=== PATIENT | male | born 1980 | race Caucasian/White ===

== ENCOUNTER 2017-06-06 20:57 | Emergency (ER) | payer MEDICAID, OTHER ==
[~2017-06-06] VITALS: Ht 188 cm; Wt 81.6 kg
[~2017-06-06 20:57] MED LIST: COZ50 PO; ESK300 PO; LORA-476 PO; OLAN20TA1 PO
--- NOTE | 2017-06-06 20:57 | NUR ---
Patient was BIBA and taken to bed 03 via gurney per EMS.
[2017-06-06 20:59] VITALS: BP 134/92
--- NOTE | 2017-06-06 20:59 | NUR ---
Dr. Yoo evaluating patient at bedside.
--- NOTE | 2017-06-06 21:00 | NUR ---
37Y/M PT [place] TO ED FOR EVALUATION OF ANXIETY. PT STATES HE RAN OUT OF HIS LITHIUM AND ZYPREXA 2 DAYS AGO AND HAS BEEN FEELING VERY ANXIOUS SINCE THAT TIME. PT ALSO STATES HE WAS SEEN AT [facility] LAST NOC FOR SAME S/SX AND WAS GIVEN AN ATIVAN SHOT, WHICH HAS SINCE WORE OFF. HX BIPOLAR DISORDER AND SCHIZOPHRENIA. AAO X4, AMBULATORY WITH STEADY GAIT. RESPIRATIONS ROOM AIR, EVEN AND UNLABORED. NO S/SX OF DISTRESS AT THIS TIME. ER MD MADE AWARE OF PT. STATTUS.
[2017-06-06] MEDS ORDERED: LORazepam 1 MG TAB PO ONE ×3 (21:05→22:20)
[2017-06-06] MEDS ORDERED: OLANZapine 5 MG TAB PO SCH (21:45)
[2017-06-06] MEDS ORDERED: LITHIUM CARBONATE 300 MG TAB PO SCH (21:45)
[2017-06-06 21:57] LABS: AMPHETAMINE, URINE NEG. ng/ml (NEG <=1000); BARBITURATE, URINE NEG. ng/ml (NEG <=200); BENZODIAZEPINE, URINE NEG. ng/mL (NEG <=200); CANNABINOID, URINE NEG. ng/mL (NEG <=50); COCAINE, URINE NEG. ng/mL (NEG <=300); OPIATE, URINE NEG. ng/mL (NEG <=2000); PHENCYCLIDINE SCREEN,URINE NEG. ng/mL (NEG <=25)
[2017-06-06] MEDS ORDERED: LITHIUM CARBONATE 300 MG TAB ONE (22:24)
[2017-06-06] MEDS ORDERED: OLANZapine 5 MG TAB ONE (22:25)
--- NOTE | 2017-06-06 23:05 | NUR ---
Patient discharged with v/s stable. Written and verbal after care instructions given and explained. Patient alert, oriented and verbalized understanding of instructions. Ambulatory with steady gait. All questions addressed prior to discharge. ID band removed. Patient advised to follow up with PMD. Rx of LITHIUM CARBONATE 300 MG, ZYPREXA 20 MG given. Patient educated on indication of medication including possible reaction and side effects. Opportunity to ask questions provided and answered.
[2017-06-06 23:11] VITALS: BP 126/69
== END 2017-06-06 23:05 | disposition home or self-care (01) ==
LOC: MED 20:57
DX: F41.1 Generalized anxiety disorder (principal); F31.9 Bipolar disorder, unspecified; F20.9 Schizophrenia, unspecified; Z76.0 Encounter for issue of repeat prescription; Z88.8 Allergy status to other drugs, medicaments and biological substances; Z88.6 Allergy status to analgesic agent
CPT/HCPCS: 80305; 93005; 99285

== ENCOUNTER 2017-06-18 20:23 | Emergency (ER) | payer MEDICAID ==
[~2017-06-18] VITALS: Ht 188 cm; Wt 81.6 kg
[2017-06-18 20:28] VITALS: BP 133/101
[2017-06-18] MEDS ORDERED: LORazepam 2 MG/ML VIAL IM ONE (20:45)
[2017-06-18 21:41] VITALS: BP 150/91
== END 2017-06-18 21:40 | disposition home or self-care (01) ==
LOC: MED 20:23
DX: F41.0 Panic disorder [episodic paroxysmal anxiety] (principal); R03.0 Elevated blood-pressure reading, without diagnosis of hypertension; F20.9 Schizophrenia, unspecified; Z88.8 Allergy status to other drugs, medicaments and biological substances; Z79.899 Other long term (current) drug therapy
CPT/HCPCS: 96372; 99284; J2060

== ENCOUNTER → 2017-06-19 04:40 | Emergency (ER) | payer SELFPAY ==
--- NOTE | 2017-06-19 04:40 | NUR ---
PATIENT LEFT WITHOUT BEING SEEN BY DR. COMER. NO FURTHER CARE PROVIDED FOR PATIENT.
== END | disposition left against medical advice (07) ==
LOC: MED 04:40
DX: F41.9 Anxiety disorder, unspecified (principal); Z53.21 Procedure and treatment not carried out due to patient leaving prior to being seen by health care provider; Z79.899 Other long term (current) drug therapy

== ENCOUNTER 2017-07-26 23:47 | Emergency (ER) | payer OTHER ==
[~2017-07-26] VITALS: Ht 188 cm; Wt 81.6 kg
--- NOTE | 2017-07-26 23:47 | NUR ---
Matty appiah in [facility] - 07/27/17 at 0015 by GREGORY JAMES SERVIN. TAKEN TO OF
[2017-07-26 23:53] VITALS: BP 151/119
--- NOTE | 2017-07-27 00:15 | NUR ---
PT TAKEN TO OF2
--- NOTE | 2017-07-27 00:27 | NUR ---
Dr. Valadez evaluating patient
[2017-07-27] MEDS ORDERED: LORazepam 1 MG TAB PO ONE (00:30)
[2017-07-27 01:40] VITALS: BP 132/84
--- NOTE | 2017-07-27 01:40 | NUR ---
Patient discharged with v/s stable. Written and verbal after care instructions given and explained. Patient verbalized understanding. Ambulatory with steady gait. All questions addressed prior to discharge. Advised to follow up with PMD.
== END 2017-07-27 01:40 | disposition home or self-care (01) ==
LOC: MED 23:47
DX: F41.9 Anxiety disorder, unspecified (principal); F20.89 Other schizophrenia; F31.9 Bipolar disorder, unspecified; Z88.8 Allergy status to other drugs, medicaments and biological substances; Z79.899 Other long term (current) drug therapy
CPT/HCPCS: 99284

== ENCOUNTER 2017-08-09 19:01 | Emergency (ER) | payer OTHER ==
[~2017-08-09] VITALS: Ht 188 cm; Wt 85.7 kg
[~2017-08-09 19:01] MED LIST changes: +ATIVAN1 MG PO; -COZ50 PO; +COZAAR50 MG PO; +DEPAKOTE ER250 MG PO; -ESK300 PO; +ESKALITH300 M3 PO; +LEVAQUIN500 MG PO; +LITHIUM; -LORA-476 PO; -OLAN20TA1 PO; +ZYPREXA; +ZYPREXA10 MG PO; +ZYPREXA20 MG PO
[2017-08-09 19:06] VITALS: BP 149/110
[2017-08-09] MEDS: NACL 0.9% 1,000 ML IV ONE (19:50)
[2017-08-09] MEDS: LORazepam 2 MG/ML VIAL IVP ONE ×2 (19:57→21:15)
[2017-08-09 21:23] VITALS: BP 154/120
== END 2017-08-09 21:23 | disposition home or self-care (01) ==
LOC: MED 19:01
DX: F41.0 Panic disorder [episodic paroxysmal anxiety] (principal); R03.0 Elevated blood-pressure reading, without diagnosis of hypertension; Z88.8 Allergy status to other drugs, medicaments and biological substances; Z79.899 Other long term (current) drug therapy
CPT/HCPCS: 36415; 71010; 80053; 84484; 85025; 85610; 85730; 93005; 96361; 96374; 96376; 99285; J2060; Q0092

== ENCOUNTER 2017-08-10 14:00 | Emergency (ER) | payer OTHER ==
[~2017-08-10] VITALS: Ht 188 cm; Wt 81.6 kg
[2017-08-10 14:04] VITALS: BP 134/95
[2017-08-10] MEDS: LORazepam 2 MG/ML VIAL IM ONE (14:45)
[2017-08-10 15:40] VITALS: BP 112/75
== END 2017-08-10 15:40 | disposition home or self-care (01) ==
LOC: MED 14:00
DX: F41.9 Anxiety disorder, unspecified (principal); F19.10 Other psychoactive substance abuse, uncomplicated; F20.89 Other schizophrenia; Z79.899 Other long term (current) drug therapy
CPT/HCPCS: 96372; 99284; J2060

== ENCOUNTER 2017-09-03 02:55 | Emergency (ER) | payer OTHER ==
[~2017-09-03] VITALS: Ht 175.3 cm; Wt 78.9 kg
[~2017-09-03 02:55] MED LIST changes: -ATIVAN1 MG PO; +COZ50 PO; -COZAAR50 MG PO; -DEPAKOTE ER250 MG PO; +ESK300 PO; -ESKALITH300 M3 PO; -LEVAQUIN500 MG PO; -LITHIUM; +LORA-476 PO; +OLAN20TA1 PO; -ZYPREXA; -ZYPREXA10 MG PO; -ZYPREXA20 MG PO
[2017-09-03 03:04] VITALS: BP_SYST 147; BP_DIAS 115; BP_DIAS 88
[2017-09-03] MEDS ORDERED: TRAZ-286 PO (03:10)
--- NOTE | 2017-09-03 03:13 | NUR ---
PT TAKEN TO BED 11.
--- NOTE | 2017-09-03 03:17 | NUR ---
BIBA WITH C/O ANXIETY. HX METH ABUSE PT DENIES N/V/D; SKIN IS PINK/WARM/DRY; AAOX4 WITH EVEN AND STEADY GAIT; LUNGS CLEAR BL; HR EVEN AND REGULAR; PT DENIES ANY FEVER, CP, SOB, OR COUGH AT THIS TIME; PATIENT STATES PAIN OF 0/10 AT THIS TIME; VSS; PATIENT POSITIONED FOR COMFORT; HOB ELEVATED; BEDRAILS UP X2; BED DOWN. ER MD MADE AWARE OF PT STATUS.
--- NOTE | 2017-09-03 03:24 | NUR ---
Patient being evaluated by Dr. Ornelas at bedside.
[2017-09-03 03:38] VITALS: BP 147/115
--- NOTE | 2017-09-03 03:39 | NUR ---
Patient discharged with v/s stable. Written and verbal after care instructions given and explained. Patient alert, oriented and verbalized understanding of instructions. Ambulatory with steady gait. All questions addressed prior to discharge. ID band removed. Patient advised to follow up with PMD. Rx of ativan 1mg given. Patient educated on indication of medication including possible reaction and side effects. Opportunity to ask questions provided and answered. Addendum: 09/03/17 at 0532 by [email or web address] Amendment undone in EDM - 09/03/17 at 0536 by [email or web address] PT STATED HE HAD A RESIDENCE IN [place] TO GO TO, PT ASKED IF HE HAD A RIDE PT STATED "ITS HANDLED"
--- NOTE | 2017-09-03 03:39 | NUR ---
PT STATED HE HAD A RESIDENCE IN [place] TO GO TO, PT ASKED IF HE HAD A RIDE PT STATED "ITS HANDLED"
== END 2017-09-03 03:39 | disposition home or self-care (01) ==
LOC: MED 02:55
DX: F41.9 Anxiety disorder, unspecified (principal); Z79.899 Other long term (current) drug therapy; F17.210 Nicotine dependence, cigarettes, uncomplicated
CPT/HCPCS: 99284

== ENCOUNTER 2017-09-10 06:35 | Emergency (ER) | payer OTHER ==
[~2017-09-10] VITALS: Ht 188 cm; Wt 81.6 kg
[~2017-09-10 06:35] MED LIST changes: +TRAZ-286 PO
--- NOTE | 2017-09-10 06:35 | NUR ---
Patient [facility] BLS, triaged by RN and transferred to OF.
--- NOTE | 2017-09-10 06:36 | NUR ---
Dr. Jhaveri evaluating patient at bedside.
[2017-09-10 06:42] VITALS: BP 138/86
[2017-09-10] MEDS ORDERED: LORazepam 2 MG/ML VIAL IM ONE (06:45)
--- NOTE | 2017-09-10 06:45 | NUR ---
Patient transferred to bed 7. RN evaluating patient at bedside.
--- NOTE | 2017-09-10 06:56 | NUR ---
37/M biba with complaints of hearing voices. Pt was seen here earlier today and discharged. Pt reports seeing and hearing voices. Denies suicidal ideation, or homicidal tendencies. AOX4, appears anxious, restless, not combative, cooperative with care. VSS.
--- NOTE | 2017-09-10 07:21 | NUR ---
Pt report given to Surjit CHING. Transfer of care at this time.
--- NOTE | 2017-09-10 07:22 | NUR ---
Pt resting on bed;talking to himself;no acute distress noted;will continue to monitor pt.
--- NOTE | 2017-09-10 07:24 | NUR ---
ASKED PT WHAT DOES THE VOICES TELL HIM;PT STATES "THIS"PT BITING HIS FINGERNAILS;ASKED PT IF HE HAS THE INTENTION TO HURT HIMSELF OR OTHER PEOPLE PT STATES "NO";WILL CONTINUE TO MONITOR PT.
--- NOTE | 2017-09-10 07:56 | NUR ---
PT AMBULATED TO THE RESTROOM;
--- NOTE | 2017-09-10 08:04 | NUR ---
PT STILL IN THE RESTROOM;KNOCK ON THE RESTROOM DOOR ,ASKED PT IF HE IS OKAY RESPONDED "YES".
--- NOTE | 2017-09-10 08:14 | NUR ---
PT BACK TO HIS BED;WILL CONTINUE TO MONITOR PT.
--- NOTE | 2017-09-10 09:05 | NUR ---
PT LYING ON BED;NO ACUTE DISTRESS NOTED;WILL CONTINUE TO MONITOR PT.
--- NOTE | 2017-09-10 09:24 | NUR ---
Patient discharged with v/s stable. Written and verbal after care instructions given and explained. Patient alert, oriented and verbalized understanding of instructions. Ambulatory with steady gait. All questions addressed prior to discharge. ID band removed. Patient advised to follow up with PMD. Rx of AFRIN SINUS given. Patient educated on indication of medication including possible reaction and side effects. Opportunity to ask questions provided and answered.HOMELESS POCKET GIVEN;PT DEMONSTRATED UNDERSTANDING OF THE POCKET;
[2017-09-10 09:25] VITALS: BP 139/85
== END 2017-09-10 09:24 | disposition home or self-care (01) ==
LOC: MED 06:35
DX: F15.10 Other stimulant abuse, uncomplicated (principal); F20.9 Schizophrenia, unspecified; Z88.8 Allergy status to other drugs, medicaments and biological substances
CPT/HCPCS: 96372; 99283; J2060

== ENCOUNTER 2017-10-23 16:47 | Emergency (ER) | payer OTHER ==
[~2017-10-23] VITALS: Ht 188 cm; Wt 83.9 kg
--- NOTE | 2017-10-23 16:47 | NUR ---
Patient was BIBA and ambulated to bed 02 from [facility].
[2017-10-23 16:50] VITALS: BP 142/97
--- NOTE | 2017-10-23 16:50 | NUR ---
37 YO MALE BIB EMS FROM FIELD FOR ANXIETY AND CONGESTION, AWAKE AND ALERT ON ARRIVAL. DENIES N/V/D; SKIN IS PINK/WARM/DRY; AAOX4 WITH EVEN AND STEADY GAIT; LUNGS CLEAR BL; HR EVEN AND REGULAR; PT DENIES ANY FEVER, CP, SOB, OR COUGH AT THIS TIME; PATIENT STATES PAIN OF 0/10 AT THIS TIME; PATIENT POSITIONED FOR COMFORT; HOB ELEVATED; BEDRAILS UP X2; BED DOWN. ER MD MADE AWARE OF PT STATUS.
--- NOTE | 2017-10-23 16:55 | NUR ---
PT STATES " I HAVE CHEST PAIN ON & OFF X 5DAYS.
[2017-10-23] MEDS ORDERED: DIAZEPAM PFS 10 MG/2 ML SYR IM ONE (17:10)
--- NOTE | 2017-10-23 17:14 | NUR ---
XRAY at bedside.
[2017-10-23 17:42] VITALS: BP 138/79
--- NOTE | 2017-10-23 17:43 | NUR ---
Patient discharged with v/s stable. Written and verbal after care instructions given and explained. Patient alert, oriented and verbalized understanding of instructions. Ambulatory with steady gait. All questions addressed prior to discharge. ID band removed. Patient advised to follow up with PMD. Rx of ATIVAN AND PROMETHAZINE COUGH SYRUP given. Patient educated on indication of medication including possible reaction and side effects. Opportunity to ask questions provided and answered.
== END 2017-10-23 17:43 | disposition home or self-care (01) ==
LOC: MED 16:47
DX: J06.9 Acute upper respiratory infection, unspecified (principal); F41.9 Anxiety disorder, unspecified; Z79.899 Other long term (current) drug therapy; Z88.8 Allergy status to other drugs, medicaments and biological substances
CPT/HCPCS: 71010; 93005; 96372; 99284; J3360; Q0092

== ENCOUNTER 2017-11-09 00:55 | Emergency (ER) | payer OTHER ==
[~2017-11-09] VITALS: Ht 188 cm; Wt 81.6 kg
[2017-11-09 01:59] VITALS: BP 119/91
--- NOTE | 2017-11-09 02:47 | NUR ---
37Y M BIBA FOR CONGESTION . PT DENIES N/V/D; SKIN IS PINK/WARM/DRY; AAOX4 WITH EVEN AND STEADY GAIT; LUNGS CLEAR BL; HR EVEN AND REGULAR; PT DENIES ANY FEVER, CP, SOB, OR COUGH AT THIS TIME; PATIENT STATES PAIN OF 0/10 AT THIS TIME; VSS; PATIENT POSITIONED FOR COMFORT; HOB ELEVATED; BEDRAILS UP X2; BED DOWN. ER MD MADE AWARE OF PT STATUS.
[2017-11-09 02:48] VITALS: BP 119/91
--- NOTE | 2017-11-09 03:12 | NUR ---
PATIENT LEFT WITHOUT BEING SEEN BY DR. HAHN. NO FURTHER CARE PROVIDED FOR PATIENT.
== END 2017-11-09 03:12 | disposition left against medical advice (07) ==
LOC: MED 00:55
DX: R07.89 Other chest pain (principal); Z53.21 Procedure and treatment not carried out due to patient leaving prior to being seen by health care provider

== ENCOUNTER 2018-01-08 19:02 | Emergency (ER) | payer OTHER ==
[~2018-01-08] VITALS: Ht 188 cm; Wt 81.6 kg
[2018-01-08 19:17] VITALS: BP 154/105
--- NOTE | 2018-01-08 20:30 | NUR ---
PATIENT PRESENTS TO ED WITH C/O CHEST PAIN X 1 HR, PT ADMITS TO USING METHAMPHETAMINE TODAY. STATES HE'S HUNGRY. MED HX: SUBSTANCE ABUSE/BIPOLAR/SCHIZOPHRENIA PT DENIES N/V/D; SKIN IS PINK/WARM/DRY; AAOX4 WITH EVEN AND STEADY GAIT; LUNGS CLEAR BL; HR EVEN AND REGULAR; PT DENIES ANY FEVER OR SOB, OR COUGH AT THIS TIME; PATIENT STATES PAIN OF 5/10 AT THIS TIME; VSS; PATIENT POSITIONED FOR COMFORT; HOB ELEVATED; BEDRAILS UP X2; BED DOWN. ER MD MADE AWARE OF PT STATUS.
[2018-01-08] MEDS ORDERED: NALOXONE PFS 2 MG/2 ML SYR IVP ONE (20:40)
[2018-01-08 21:21] LABS: BASOPHILS # (AUTO) 0.5 K/uL (0.00-0.22); EOSINOPHILS # (AUTO) 0.3 K/uL (0-0.4); HEMATOCRIT 37.9 % (36-52); HEMOGLOBIN 12.4 g/dL (12.0-18.0); LYMPHOCYTES # (AUTO) 3.1 K/uL (2.0-11.5); MEAN CORPUSCULAR HEMOGLOBIN 28 pg (27-31); MEAN CORPUSCULAR HGB CONC 33 g/dL (33-37); MEAN CORPUSCULAR VOLUME 86 fL (80-94); MONOCYTES # (AUTO) 0.6 K/uL (0.8-1.0); NEUTROPHILS # (AUTO) 5.7 K/uL (1.8-7.7); PLATELET COUNT (AUTO) 451 K/uL (140-450); RED BLOOD CELL COUNT(AUTO) 4.39 MIL/uL (4.20-6.10); RED CELL DISTRIBUTION WIDTH 14.8 % (11.6-13.7); WHITE BLOOD COUNT (AUTO) 10.2 K/uL (4.8-10.8)
--- NOTE | 2018-01-08 21:21 | NUR ---
PT ASKED FOR JUICE AND WATER, STS "SO I CAN GIVE US A UA." BOTH GIVEN.
[2018-01-08 21:33] LABS: ANION GAP 10.5 (8-16); CARBON DIOXIDE 27.7 mmol/L (21-32); CHLORIDE 104 mmol/L (98-107); CREATININE 0.6 mg/dL (0.7-1.3); GFR ARICAN-AMERICAN 193 mL/min (>90); GLUCOSE 109 mg/dL (74-106); POTASSIUM 3.2 mmol/L (3.5-5.1); SODIUM SERUM 139 mmol/L (136-145); UREA NITROGEN, BLOOD 8 mg/dL (7-18)
[2018-01-08 21:40] LABS: ALBUMIN 3.1 g/dL (3.4-5.0); ASPARTATE AMINOTRANSFERASE 34 U/L (15-37); TOTAL BILIRUBIN 0.3 mg/dL (0.0-1.0)
[2018-01-08] MEDS ORDERED: POTASSIUM CHLORIDE 10 MEQ TABER PO ONE (22:10)
[2018-01-08 22:14] LABS: APPEARANCE,URINE CLEAR (CLEAR); BILIRUBIN,URINE NEGATIVE (NEGATIVE); BLOOD, URINE NEGATIVE (NEGATIVE); LEUKOCYTE ESTERASE ,URINE NEGATIVE (NEGATIVE); NITRITE, URINE NEGATIVE (NEGATIVE); UGLUCOSE NEGATIVE (NEGATIVE)
[2018-01-08 22:15] LABS: COLOR,URINE STRAW (YELLOW)
[2018-01-08 22:17] LABS: BARBITURATE, URINE NEG. ng/ml (NEG <=200); BENZODIAZEPINE, URINE NEG. ng/mL (NEG <=200); CANNABINOID, URINE NEG. ng/mL (NEG <=50); COCAINE, URINE NEG. ng/mL (NEG <=300); OPIATE, URINE NEG. ng/mL (NEG <=2000); PHENCYCLIDINE SCREEN,URINE NEG. ng/mL (NEG <=25)
--- NOTE | 2018-01-08 23:20 | NUR ---
Patient appears to be resting comfortably in bed. Vital Signs within normal limits. Respirations even and unlabored.
[2018-01-08 23:31] VITALS: BP 148/99
== END 2018-01-08 23:31 | disposition home or self-care (01) ==
LOC: MED 19:02 → CANBEDREQ 20:32 → MED 23:31
DX: F10.129 Alcohol abuse with intoxication, unspecified (principal); F17.200 Nicotine dependence, unspecified, uncomplicated; Z88.8 Allergy status to other drugs, medicaments and biological substances
CPT/HCPCS: 36415; 80053; 80305; 81003; 84484; 85025; 93005; 96374; 99285; G0482; J2310

== ENCOUNTER 2018-01-19 20:45 | Emergency (ER) | payer OTHER ==
[~2018-01-19] VITALS: Ht 188 cm; Wt 81.6 kg
[2018-01-19 20:55] VITALS: BP 141/100
--- NOTE | 2018-01-20 | NUR ---
PT CALLED FROM LOBBY BUT PT ASLEEP, ATTEMPTED TO WAKE PT UP, BUT PT ONLY TURNED TO THE SIDE. CHARGE NURSE AND MD MADE AWARE.
--- NOTE | 2018-01-20 00:11 | NUR ---
PT AMBULATED TO ER [facility]
--- NOTE | 2018-01-20 00:43 | NUR ---
Dr. Gusman evaluating patient.
--- NOTE | 2018-01-20 00:52 | NUR ---
DR. COMER AT BEDSIDE ATTEMPTING TO EVALUATE PT. PT MUMBLED SOMETHING AND WALKED OUT OF THE ER.
== END 2018-01-20 00:52 | disposition left against medical advice (07) ==
LOC: MED 20:45
DX: R07.9 Chest pain, unspecified (principal); Z88.8 Allergy status to other drugs, medicaments and biological substances
CPT/HCPCS: 93005; 99283; J7030

== ENCOUNTER 2018-02-08 16:43 | Emergency (ER) | payer OTHER ==
[~2018-02-08] VITALS: Ht 188 cm; Wt 81.6 kg
[2018-02-08 16:50] VITALS: BP 134/74
[2018-02-08] MEDS ORDERED: LORazepam 2 MG/ML VIAL IM ONE (17:40)
[2018-02-08 19:33] VITALS: BP 122/67
== END 2018-02-08 19:34 | disposition home or self-care (01) ==
LOC: MED 16:43
DX: F41.9 Anxiety disorder, unspecified (principal); Z88.8 Allergy status to other drugs, medicaments and biological substances; Z88.6 Allergy status to analgesic agent
CPT/HCPCS: 96372; 99284; J2060

== ENCOUNTER 2018-03-11 19:17 | Emergency (ER) | payer OTHER ==
[~2018-03-11] VITALS: Ht 188 cm; Wt 81.6 kg
--- NOTE | 2018-03-11 19:21 | NUR ---
PT BIB [facility] TO ER BED 11
[2018-03-11 19:22] VITALS: BP 130/74
--- NOTE | 2018-03-11 19:26 | NUR ---
37/M BIBA FROM [place] FOR ETOH, PT STATED HE DRANK "3-4 JORGE'S LEMONADE." PT REPORTS NAUSEA, DENIES VOMITING. PT REPORTS ABD PAIN, NONRADIATING. ABD SOFT, ROUND, SLIGHTLY TENDER UPON PALPATION. PT REPORTS HEARING VOICES, DENIES SI/HI. AOX4, AMBULATORY, RR EVEN AND UNLABORED. HX SCHIZOPHRENIA, BIPOLAR, ANXIETY. ER MD DR GARLAND AWARE.
--- NOTE | 2018-03-11 19:27 | NUR ---
PT UNABLE TO COLLECT URINE AT THIS TIME, WILL CONTINUE TO ATTEMPT
[2018-03-11] MEDS ORDERED: FAMOTIDINE 20 MG TAB PO ONE (19:30)
[2018-03-11] MEDS ORDERED: ONDANSETRON 4 MG ODT PO ONE ×3 (19:30→19:40)
[2018-03-11] MEDS ORDERED: PROMETHAZINE 25 MG TAB PO PRN (19:30)
[2018-03-11] MEDS ORDERED: diphenhydrAMINE 12.5 MG/5 ML UDC PO ONE ×2 (19:30→19:50)
--- NOTE | 2018-03-11 20:45 | NUR ---
Patient appears to be resting comfortably in bed. Vital Signs within normal limits. Respirations even and unlabored.
--- NOTE | 2018-03-11 22:00 | NUR ---
Patient appears to be resting comfortably in bed. Vital Signs within normal limits. Respirations even and unlabored.
[2018-03-11 23:19] VITALS: BP 124/76
--- NOTE | 2018-03-11 23:19 | NUR ---
Patient discharged with v/s stable. Written and verbal after care instructions given and explained. Patient alert, oriented and verbalized understanding of instructions. Ambulatory with steady gait. All questions addressed prior to discharge. ID band removed. Patient advised to follow up with PMD. Rx of PEDIALYTE AND ZOFRAN given. Patient educated on indication of medication including possible reaction and side effects. Opportunity to ask questions provided and answered.
== END 2018-03-11 23:19 | disposition home or self-care (01) ==
LOC: MED 19:17
DX: F15.10 Other stimulant abuse, uncomplicated (principal); R11.2 Nausea with vomiting, unspecified; F20.9 Schizophrenia, unspecified; F41.9 Anxiety disorder, unspecified; F31.9 Bipolar disorder, unspecified; Z88.8 Allergy status to other drugs, medicaments and biological substances
CPT/HCPCS: 99284; Q0163; S0119

== ENCOUNTER 2018-03-23 10:02 | Emergency (ER) | payer OTHER ==
[~2018-03-23] VITALS: Ht 188 cm; Wt 81.6 kg
--- NOTE | 2018-03-23 10:03 | NUR ---
PT BIBA BLS TO BED 8
[2018-03-23 10:05] VITALS: BP 131/80
--- NOTE | 2018-03-23 10:05 | NUR ---
37 BIBA FROM FIELD FOR LOWER BACK PAIN X 5 DAYS. DENIES N/V/D; SKIN IS PINK/WARM/DRY; AAOX4 WITH EVEN AND STEADY GAIT; LUNGS CLEAR BL; HR EVEN AND REGULAR; PT DENIES ANY FEVER, CP, SOB, OR COUGH AT THIS TIME; PATIENT STATES PAIN OF 5/10 AT THIS TIME; VSS; PATIENT POSITIONED FOR COMFORT; HOB ELEVATED; BEDRAILS UP X2; BED DOWN. ER MD MADE AWARE OF PT STATUS.
[2018-03-23] MEDS ORDERED: IBUPROFEN 800 MG TAB PO ONE (10:40)
[2018-03-23] MEDS ORDERED: CYCLOBENZAPRINE 10 MG TAB PO ONE (10:40)
[2018-03-23 11:30] VITALS: BP 131/80
== END 2018-03-23 11:30 | disposition home or self-care (01) ==
LOC: MED 10:02
DX: M54.5 Low back pain (principal); Z88.8 Allergy status to other drugs, medicaments and biological substances
CPT/HCPCS: 99283

== ENCOUNTER 2018-07-01 02:35 | Emergency (ER) | payer OTHER ==
[~2018-07-01] VITALS: Ht 177.8 cm; Wt 86.2 kg
[2018-07-01 02:35] VITALS: BP 134/82
[~2018-07-01 02:35] MED LIST changes: -TRAZ-286 PO; +TRAZ-343 PO
--- NOTE | 2018-07-01 02:35 | NUR ---
PATIENT BIB BLS TO ER BED 6.
--- NOTE | 2018-07-01 02:40 | NUR ---
PT BIBA FOR SOB AFTER WALKING AROUND PER [facility]. RR EVEN AND UNLABORED, BL BS CLEAR THROUGHOUT. PT IS AWAKE AND ACTING APPROPRIATE, APPEARS TO BE IN NO ACUTE RESPIRATORY DISTRESS. PMH SCHIZOPHRENIA
--- NOTE | 2018-07-01 04:30 | NUR ---
PT IN BED SLEEPING, VSS, WILL CONTINUE TO MONITOR.
[2018-07-01 04:37] LABS: BARBITURATE, URINE NEG. ng/ml (NEG <=200); BENZODIAZEPINE, URINE NEG. ng/mL (NEG <=200); CANNABINOID, URINE NEG. ng/mL (NEG <=50); COCAINE, URINE NEG. ng/mL (NEG <=300); OPIATE, URINE NEG. ng/mL (NEG <=2000); PHENCYCLIDINE SCREEN,URINE NEG. ng/mL (NEG <=25)
--- NOTE | 2018-07-01 05:33 | NUR ---
PENDING D/C PAPERWORK FROM DR GARCIA
[2018-07-01 05:55] VITALS: BP 130/80
== END 2018-07-01 05:55 | disposition home or self-care (01) ==
LOC: MED 02:35
DX: F15.10 Other stimulant abuse, uncomplicated (principal); F20.9 Schizophrenia, unspecified; J44.9 Chronic obstructive pulmonary disease, unspecified; Z76.5 Malingerer [conscious simulation]; Z88.8 Allergy status to other drugs, medicaments and biological substances; Z79.899 Other long term (current) drug therapy
CPT/HCPCS: 80305; 99283

== ENCOUNTER 2018-07-04 02:05 | Emergency (ER) | payer OTHER ==
[~2018-07-04] VITALS: Ht 188 cm; Wt 81.6 kg
--- NOTE | 2018-07-04 02:07 | NUR ---
PT [facility]ABAS ALS. TAKEN TO BED 3
[2018-07-04 02:12] VITALS: BP 146/92
--- NOTE | 2018-07-04 02:15 | NUR ---
ASSUMED CARE OF PT AT THIS TIME. C/O SUB-STERNAL, NON-RADIATING CP X 30 MINUTES. NO RESPIRATORY DISTRESS...PT SPEAKS IN FULL SENTENCES. AAOX4 WITH EVEN AND STEADY GAIT; PATIENT STATES PAIN OF 2/10; VSS; PATIENT POSITIONED FOR COMFORT; HOB ELEVATED; BEDRAILS UP X2; BED DOWN. ER MD MADE AWARE OF PT STATUS. WILL CONTINUE TO MONITOR.
--- NOTE | 2018-07-04 02:18 | NUR ---
EKG PERFORMED AT BEDSIDE, PT COVERED IN GOWN DURING PROCEDURE.
[2018-07-04] MEDS ORDERED: KETOROLAC 60 MG/2 ML VIAL IM ONE (02:30)
[2018-07-04] MEDS ORDERED: KETOROLAC 30 MG/ML VIAL ONE (02:36)
[2018-07-04] MEDS ORDERED: KETOROLAC 30 MG/ML VIAL IM ONE (02:40)
[2018-07-04 03:35] VITALS: BP 138/94
== END 2018-07-04 03:35 | disposition home or self-care (01) ==
LOC: MED 02:05
DX: R07.89 Other chest pain (principal); J44.9 Chronic obstructive pulmonary disease, unspecified; F17.200 Nicotine dependence, unspecified, uncomplicated; Z90.89 Acquired absence of other organs; Z88.8 Allergy status to other drugs, medicaments and biological substances; Z79.899 Other long term (current) drug therapy
CPT/HCPCS: 93005; 96372; 99283; J1885

== ENCOUNTER 2018-11-03 23:37 | Emergency (ER) | payer OTHER ==
[~2018-11-03] VITALS: Ht 188 cm; Wt 81.6 kg
[2018-11-03 23:39] VITALS: BP 145/90
[2018-11-04] MEDS ORDERED: NACL 0.9% 1,000 ML IV ONE (01:08)
[2018-11-04] MEDS ORDERED: ONDANSETRON 4 MG/2 ML VIAL IVP ONE (01:10)
[2018-11-04] MEDS ORDERED: DICYCLOMINE HCL LIQUID 20 MG, ALUMINUM HYD/MAG/SIMETHICONE 30 ML, LIDOCAINE VISCOUS 2% ... PO ONE ×3 (01:10)
[2018-11-04 01:58] LABS: BASOPHILS % (AUTO) 0.2 % (0.0-2.0); EOSINOPHILS # (AUTO) 0.1 K/uL (0-0.4); EOSINOPHILS % (AUTO) 0.4 % (0.0-4.0); HEMATOCRIT 42.4 % (36-52); HEMOGLOBIN 13.9 g/dL (12.0-18.0); LYMPHOCYTES # (AUTO) 1.7 K/uL (2.0-11.5); MEAN CORPUSCULAR HEMOGLOBIN 29 pg (27-31); MEAN CORPUSCULAR HGB CONC 33 g/dL (33-37); MEAN CORPUSCULAR VOLUME 89.8 fL (80-94); MONOCYTES # (AUTO) 0.8 K/uL (0.8-1.0); MONOCYTES % (AUTO) 4.1 % (1.7-9.3); NEUTROPHILS # (AUTO) 16.1 K/uL (1.8-7.7); RED BLOOD CELL COUNT(AUTO) 4.73 MIL/uL (4.20-6.10); RED CELL DISTRIBUTION WIDTH 13.4 % (11.6-13.7)
[2018-11-04 02:06] LABS: ANION GAP 11.5 (8-16); CARBON DIOXIDE 30.1 mmol/L (21-32); CREATININE 0.8 mg/dL (0.7-1.3); POTASSIUM 3.6 mmol/L (3.5-5.1)
[2018-11-04 02:08] LABS: PLATELET COUNT (AUTO) 524 K/uL (140-450); WHITE BLOOD COUNT (AUTO) 18.7 K/uL (4.8-10.8)
[2018-11-04 02:09] LABS: LYMPHOCYTES % (AUTO) 9.3 % (20.5-51.1)
[2018-11-04 02:11] LABS: BARBITURATE, URINE NEG. ng/ml (NEG <=200); BENZODIAZEPINE, URINE NEG. ng/mL (NEG <=200); CANNABINOID, URINE NEG. ng/mL (NEG <=50); COCAINE, URINE NEG. ng/mL (NEG <=300); OPIATE, URINE NEG. ng/mL (NEG <=2000); PHENCYCLIDINE SCREEN,URINE NEG. ng/mL (NEG <=25)
[2018-11-04 02:11] LABS: ALBUMIN 3.9 g/dL (3.4-5.0); TOTAL BILIRUBIN 0.2 mg/dL (0.0-1.0)
[2018-11-04] MEDS ORDERED: NALOXONE 0.4 MG/ML VIAL ONE ×2 (04:08→04:14)
[2018-11-04 04:32] VITALS: BP 138/83
== END 2018-11-04 04:32 | disposition home or self-care (01) ==
LOC: MED 23:37
DX: R10.13 Epigastric pain (principal); R11.2 Nausea with vomiting, unspecified; J44.9 Chronic obstructive pulmonary disease, unspecified; Z79.899 Other long term (current) drug therapy; Z88.8 Allergy status to other drugs, medicaments and biological substances; Z90.81 Acquired absence of spleen
CPT/HCPCS: 36415; 74176; 80053; 80305; 83690; 85025; 96374; 99284; G0482; J2405; J7030; J2310

== ENCOUNTER 2023-07-30 01:55 | Emergency (ER) | payer OTHER ==
[~2023-07-30] VITALS: Ht 188 cm; Wt 81.6 kg
[2023-07-30 01:55] VITALS: BP 133/87; PULSE 90; RESP 17; TEMP 98.3; O2SAT 96
[~2023-07-30 01:55] MED LIST changes: -COZ50 PO; +LOSA50TA57 PO
[2023-07-30 03:00] VITALS: BP 133/87; PULSE 90; RESP 17; TEMP 98.3; O2SAT 96
== END 2023-07-30 03:00 | disposition home or self-care (01) ==
LOC: MED 01:55
DX: F20.9 Schizophrenia, unspecified (principal); R09.81 Nasal congestion; R06.00 Dyspnea, unspecified; F41.9 Anxiety disorder, unspecified; J44.9 Chronic obstructive pulmonary disease, unspecified; Z88.1 Allergy status to other antibiotic agents; Z88.5 Allergy status to narcotic agent; Z88.8 Allergy status to other drugs, medicaments and biological substances; Z79.899 Other long term (current) drug therapy
CPT/HCPCS: 99283